=== PATIENT | female | born 1985 | race Caucasian/White ===

== ENCOUNTER 2019-03-03 09:52 | Outpatient (RCR) | payer OTHER, SELFPAY ==
[2019-03-03 10:08] LABS: Hematocrit 32.4 % (37.0-47.0); Hemoglobin 10.9 g/dL (12.0-15.0); Mean Corpuscular HGB Conc 33.6 g/dl (32-36); Mean Corpuscular Hemoglobin 29.9 pg (26-34); Mean Platelet Volume 10.1 fl (7.4-10.4); Platelet Count Result 206 k/mm3 (150-375); Red Blood Count 3.64 M/mm3 (4.2-5.4); Red Cell Distribution Width 12.9 % (11.5-14.5); White Blood Count 7.2 K/mm3 (4.5-10.0)
[2019-03-04] MEDS: RHO(D) IMMUNE GLOBULIN 300 MCG SYRINGE IM (12:05)
== END 2019-06-01 23:59 | disposition home or self-care (01) ==
LOC: ANHLAB 09:52
PROVIDERS: Visit Provider Student in an Organized Health Care Education/Training Program
DX: Z29.13 Encounter for prophylactic Rho(D) immune globulin (principal); O36.0920 Maternal care for other rhesus isoimmunization, second trimester, not applicable or unspecified; Z3A.27 27 weeks gestation of pregnancy
CPT/HCPCS: 36415; 36430; 85027; 86850; 90384; 96372; J2790